=== PATIENT | female | born 1975 | race Two or more races ===

== ENCOUNTER 2019-08-04 10:56 | Outpatient (CLI) | payer OTHER | END 2019-08-04 11:12 | disposition home or self-care (01) | LOC: SONOGRAMA 10:56 | DX: E04.1 Nontoxic single thyroid nodule (principal) ==

== ENCOUNTER 2022-08-07 20:49 | Emergency (ER) | payer OTHER ==
[~2022-08-07] VITALS: Ht 175.3 cm; Wt 1167.1 kg
[2022-08-07] MEDS ORDERED: SYNTHROID50 MCG PO (21:20)
[2022-08-07] MEDS ORDERED: DICLOFENAC SODI75 MG PO (21:33)
== END 2022-08-07 21:38 | disposition home or self-care (01) ==
LOC: ER 20:49
DX: M77.8 Other enthesopathies, not elsewhere classified (principal); R10.2 Pelvic and perineal pain

== ENCOUNTER 2022-10-13 17:11 | Emergency (ER) | payer OTHER ==
[~2022-10-13] VITALS: Ht 175.3 cm; Wt 116.1 kg
[~2022-10-13 17:11] MED LIST: DICLOFENAC SODI75 MG PO; SYNTHROID50 MCG PO
[2022-10-13] MEDS ORDERED: LISINOPRIL20 MG PO (17:39)
[2022-10-13] MEDS ORDERED: MEDROLPACK PO (21:30)
[2022-10-13] MEDS ORDERED: METAXALONE800 MG PO (21:30)
[2022-10-13] MEDS ORDERED: ADVIL DUAL ACT1 EACH PO (21:30)
== END 2022-10-13 21:50 | disposition home or self-care (01) ==
LOC: ER 17:11
DX: M54.50 Low back pain, unspecified (principal)